=== PATIENT | male | born 1980 | race Caucasian/White ===

== ENCOUNTER 2020-10-20 20:24 | Emergency (ER) | payer OTHER ==
[~2020-10-20] VITALS: Ht 167.6 cm; Wt 59.0 kg
--- NOTE | 2020-10-20 20:29 | NUR ---
PT [id number]. BIBSELF REQUESTING VOLUNTARY PSYCH MEDICAL CLEARANCE. PT STATING HE IS SUICIDAL WITH PLAN TO HANG HIMSELF. PLACED IN GOWN, ON MONITOR, AND PULSE OX. AWAITING ER MD FOR EVAL AND ORDERS.
--- NOTE | 2020-10-20 21:13 | NUR ---
LADANID SWABBED, SENT TO LAB.
--- NOTE | 2020-10-20 21:13 | NUR ---
URINE COLLECTED, SENT TO LAB.
[2020-10-20 21:17] LABS: BASOPHILS % (AUTO) 0.6 % (0.0-2.0); EOSINOPHILS % (AUTO) 0.9 % (0.0-6.0); HEMATOCRIT 41 % (39-51); HEMOGLOBIN 14.1 g/dL (13.5-17.5); LYMPHOCYTES # (AUTO) 1.6 K/uL (0.8-4.8); LYMPHOCYTES % (AUTO) 24.2 % (20.0-44.0); MEAN CORPUSCULAR HGB CONC 35 g/dl (31.0-36.0); MEAN CORPUSCULAR VOLUME 98 fL (80-96); MONOCYTES # (AUTO) 0.8 K/uL (0.1-1.30); MONOCYTES % (AUTO) 12.7 % (2.0-12.0); NEUTROPHILS % (AUTO) 61.6 % (43.0-81.0); PLATELET COUNT (AUTO) 242 K/uL (150-450); RED BLOOD CELL COUNT(AUTO) 4.14 MIL/uL (4.5-6.0); WHITE BLOOD COUNT (AUTO) 6.5 K/uL (4.3-11.0)
[2020-10-20 21:21] LABS: BILIRUBIN,URINE SMALL (NEGATIVE); COLOR,URINE YELLOW (YELLOW); LEUKOCYTE ESTERASE ,URINE Negative (NEGATIVE); NITRITE, URINE Negative (NEGATIVE); PH,URINE 5.5 (5.0-8.0); PROTEIN,URINE Trace mg/dl (NEGATIVE); UGLUCOSE Negative (NEGATIVE)
[2020-10-20 21:27] LABS: CALCIUM, SERUM 9.6 mg/dL (8.5-10.1); CARBON DIOXIDE 29 mmol/L (21-32); CHLORIDE 101 mmol/L (98-107); GLUCOSE 137 mg/dL (74-106); POTASSIUM 3.4 mmol/L (3.5-5.1); SODIUM SERUM 139 mmol/L (136-145); UREA NITROGEN, BLOOD 18 mg/dL (7-18)
[2020-10-20 21:32] LABS: ALANINE AMINOTRANSFERASE 27 U/L (12-78); ALBUMIN 4.3 g/dL (3.4-5.0); ALKALINE PHOSPHATASE 106 U/L (46-116); ASPARTATE AMINOTRANSFERASE 18 U/L (15-37); BILIRUBIN,DIRECT 0.2 mg/dL (0.0-0.2); BILIRUBIN,TOTAL 0.6 mg/dL (0.2-1.0); TOTAL PROTEIN, SERUM 7.8 g/dL (6.4-8.2)
[2020-10-20 21:32] LABS: BACTERIA,URINE Few /HPF (None Seen); CALCIUM OXALATE CRYSTALS,UR Few /HPF (None Seen); MUCUS,URINE Few /LPF (None Seen); RBC,URINE 0-2 /HPF (0-2); SQUAMOUS EPITHELIAL CELL,UR Few /HPF (None Seen); WBC,URINE 0-2 /HPF (0-3)
[2020-10-20 21:33] LABS: ACETAMINOPHEN 0 ug/ml (10-30); ALCOHOL, BLOOD < 3 mg/dL (0-0)
[2020-10-20] MEDS ORDERED: POTASSIUM CHLORIDE 20 MEQ TAB.PRT.SR PO ONE ×2 (22:00→22:11)
--- NOTE | 2020-10-20 22:16 | NUR ---
CLINICAL AND FACESHEET FAXED TO [facility] FOR VOLUNTARY PSYCH ADMISSION.
--- NOTE | 2020-10-21 00:01 | NUR ---
[place] DEMPSEY AT [facility] NO BEDS AVAILABLE AT THIS TIME.
--- NOTE | 2020-10-21 06:04 | NUR ---
PT DENIES ANY SI AND HI AT THIS TIME. PT DID NOT WANT TO WAIT TO GO SOCAL. DR. PRIETO MADE AWARE. PT WAS DISCHARGED FROM ED.
[2020-10-21 06:05] VITALS: BP 130/60
== END 2020-10-21 06:05 | disposition home or self-care (01) ==
LOC: ER 20:29
DX: R45.851 Suicidal ideations (principal); F31.9 Bipolar disorder, unspecified; Z59.0 Homelessness; E87.6 Hypokalemia; D75.89 Other specified diseases of blood and blood-forming organs; Z20.822 Contact with and (suspected) exposure to COVID-19; F43.10 Post-traumatic stress disorder, unspecified; F10.10 Alcohol abuse, uncomplicated; Y90.0 Blood alcohol level of less than 20 mg/100 ml; Z82.49 Family history of ischemic heart disease and other diseases of the circulatory system; Z72.0 Tobacco use; F12.90 Cannabis use, unspecified, uncomplicated; S05.11XD Contusion of eyeball and orbital tissues, right eye, subsequent encounter; Y09 Assault by unspecified means
CPT/HCPCS: 36415; 80048; 80076; 80143; 80307; 80320; 81001; 85025; 87426; 99285; 99406; C9803; G0480

== ENCOUNTER 2020-10-21 16:27 | Emergency (ER) | payer OTHER ==
[~2020-10-21] VITALS: Ht 177.8 cm; Wt 70.3 kg
--- NOTE | 2020-10-21 16:34 | NUR ---
CALLED,NO ANSWER
[2020-10-21 17:26] VITALS: BP 145/92
--- NOTE | 2020-10-21 17:26 | NUR ---
PT SELF PRESENTS TO ED, STEADY GAIT. C/O DEPRESSION AND FEELING SUICIDAL FOR DAYS. PT STATES PLAN OF JUMPING OFF A BUILDING. PT STATES MULTIPLE SUICIDE ATTEMPT IN THE PAST. PT IS COOPERATIVE TO STAFF. STABLE VITALS. NAD NOTED. AWAITING MD [place].
[2020-10-21 18:23] LABS: BILIRUBIN,URINE Negative (NEGATIVE); COLOR,URINE ORANGE (YELLOW); LEUKOCYTE ESTERASE ,URINE Negative (NEGATIVE); NITRITE, URINE Negative (NEGATIVE); PH,URINE 5.5 (5.0-8.0); PROTEIN,URINE Negative (NEGATIVE); UGLUCOSE Negative (NEGATIVE)
[2020-10-21 18:44] LABS: BACTERIA,URINE Few /HPF (None Seen); MUCUS,URINE Many /LPF (None Seen); SQUAMOUS EPITHELIAL CELL,UR Few /HPF (None Seen)
--- NOTE | 2020-10-21 18:56 | NUR ---
PER LAB, PT HAD A COVID 19 ANTIGEN TEST LAST NIGHT AT 2150.
--- NOTE | 2020-10-21 19:10 | NUR ---
[employer]IT [employer]OUCH[employer] CLERK AT BEDSIDE FOR BLOOD DRAW.
[2020-10-21 19:13] LABS: BASOPHILS % (AUTO) 0.8 % (0.0-2.0); HEMATOCRIT 40 % (39-51); HEMOGLOBIN 13.7 g/dL (13.5-17.5); LYMPHOCYTES # (AUTO) 1.8 K/uL (0.8-4.8); LYMPHOCYTES % (AUTO) 33.3 % (20.0-44.0); MEAN CORPUSCULAR HGB CONC 34 g/dl (31.0-36.0); MEAN CORPUSCULAR VOLUME 98 fL (80-96); MONOCYTES # (AUTO) 0.8 K/uL (0.1-1.30); MONOCYTES % (AUTO) 15.7 % (2.0-12.0); NEUTROPHILS # (AUTO) 2.5 K/uL (1.8-8.9); NEUTROPHILS % (AUTO) 47.2 % (43.0-81.0); PLATELET COUNT (AUTO) 224 K/uL (150-450); RED BLOOD CELL COUNT(AUTO) 4.06 MIL/uL (4.5-6.0); WHITE BLOOD COUNT (AUTO) 5.3 K/uL (4.3-11.0)
[2020-10-21 19:36] LABS: CALCIUM, SERUM 9.3 mg/dL (8.5-10.1); CARBON DIOXIDE 31 mmol/L (21-32); CHLORIDE 101 mmol/L (98-107); CREATININE 0.9 mg/dL (0.6-1.3); GLUCOSE 87 mg/dL (74-106); POTASSIUM 4.1 mmol/L (3.5-5.1); SODIUM SERUM 136 mmol/L (136-145); UREA NITROGEN, BLOOD 19 mg/dL (7-18)
[2020-10-21 19:46] LABS: ALANINE AMINOTRANSFERASE 30 U/L (12-78); ALBUMIN 4.1 g/dL (3.4-5.0); ALCOHOL, BLOOD < 3 mg/dL (0-0); ALKALINE PHOSPHATASE 91 U/L (46-116); ASPARTATE AMINOTRANSFERASE 17 U/L (15-37); BILIRUBIN,DIRECT 0.2 mg/dL (0.0-0.2); BILIRUBIN,TOTAL 0.9 mg/dL (0.2-1.0); TOTAL PROTEIN, SERUM 7.6 g/dL (6.4-8.2)
[2020-10-21 20:55] LABS: ACETAMINOPHEN < 2 ug/ml (10-30)
[2020-10-21 21:09] LABS: EOSINOPHILS % (MANUAL) 7 % (0-4); LYMPHOCYTES % (MANUAL) 42 % (16-48); MONOCYTES % (MANUAL) 12 % (0-11.0); NEUTROPHILS % (MANUAL) 39 (42-76)
--- NOTE | 2020-10-21 21:35 | NUR ---
FACESHEET AND CLINICAL FAXED TO [facility] INTAKE FOR VOLUNTARY PSYCH ADMISSION.
--- NOTE | 2020-10-22 00:32 | NUR ---
PT ASLEEP, NO ACUTE DISTRESS NOTED, RESP EVEN AND UNALBORED.
--- NOTE | 2020-10-22 00:32 | NUR ---
Delano lenz in ED - 10/22/20 at 0301 by SUE PT STATES "I FEEL BETTER, I JUST WANT TO GO" PT DENIES SI.HI. PT REFUSE TO WAIT FOR ACI.
--- NOTE | 2020-10-22 03:02 | NUR ---
PT STATES "I FEEL BETTER, I JUST WANT TO GO" PT DENIES SI.HI. PT REFUSE TO WAIT FOR ACI.
== END 2020-10-22 03:02 | disposition home or self-care (01) ==
LOC: ER 16:27
DX: R45.851 Suicidal ideations (principal); F31.9 Bipolar disorder, unspecified; F41.9 Anxiety disorder, unspecified; F43.10 Post-traumatic stress disorder, unspecified; F10.10 Alcohol abuse, uncomplicated; F17.200 Nicotine dependence, unspecified, uncomplicated; Y90.0 Blood alcohol level of less than 20 mg/100 ml; Z59.0 Homelessness
CPT/HCPCS: 36415; 80048-TC; 80076-TC; 81001; 82550-TC; 85025-TC; 87086-TC; G0480